=== PATIENT | male | born 1995 | race Caucasian/White ===

== ENCOUNTER 2022-12-29 16:04 | Emergency (ER) | payer BC, SELFPAY ==
--- NOTE | 2022-12-29 16:10 | ED.GENADULT ---
HPI - General Adult General Chief complaint: Upper Respiratory Infection Stated complaint: Sore Throat,Congestion,Lt Ear Irritation Time Seen by Provider: 12/29/22 16:11 Source: patient Mode of arrival: ambulatory Limitations: no limitations History of Present Illness HPI narrative: 27-year-old male patient presents to the [facility] with complaints of cold symptoms for the past week. Patient states 1 of this symptoms have resolved including the runny nose but contents continues to have congestion slight sore throat and today the main thing that is bothering him is fullness and pain to the left ear. Denies fevers, body aches or chills. Denies any chest pain or shortness of breath. Denies any abdominal pain, nausea, vomiting or diarrhea. Patient states he has been taking [id number] cough drops and NyQuil for his symptoms. Related Data Allergies Allergy/AdvReac Type Severity Reaction Status Date / Time No Known Allergies Allergy Verified 12/29/22 16:06 Review of Systems Review of Systems: CONSTITUTIONAL: Denies fever, chills, or sweats. EYES: Denies visual changes, redness, or discharge. ENT: Positive rhinorrhea, congestion, sore throat, and left otalgia. CARDIOVASCULAR: Denies chest pain, palpitations, or edema. RESPIRATORY: Denies cough or dyspnea. GASTROINTESTINAL: Denies abdominal pain, nausea, vomiting, or diarrhea. GENITOURINARY: Denies dysuria or hematuria. SKIN: Denies rash or itching. MUSCULOSKELETAL: Denies back pain, joint pain, or myalgia. NEUROLOGIC: Denies headache, numbness, or weakness. PSYCHIATRIC: Denies anxiety or depression. [facility] Past Medical History Medical History (Updated 12/29/22 @ 16:27 by DORYS Morin) No significant past medical history Family History Family History Father Hypertension Social History Social History Social History: Smoking status: Never smoker Second hand tobacco smoke exposure: No Alcohol intake: current Alcohol use details: socially Substance use: never Substance use type: does not use Living arrangements: with family Occupation/Education: occupation Gender identity (if verbalized by the patient): Male Sexual Orientation (if Verbalized by the Patient): Straight or Heterosexual Comments At the time of my signature I agree with nursing past medical history, surgical, social, and family history. There is no relevant family history pertinent to the presenting complaint. Exam Narrative: GENERAL: Well-appearing, well-nourished, and in no acute distress. HEAD: Normocephalic, atraumatic. EYES: PERRLA and EOMI. ENT: Nares with erythema and edema noted bilaterally, patent, no rhinorrhea or epistaxis. Mucous membranes moist. posterior pharynx noted to have an ulcer on uvula with some erythema present. No tonsillar enlargement. The left TM has erythema noted. NECK: Supple. No lymphadenopathy CHEST: Clear to auscultation. No respiratory distress. HEART: Regular rate and rhythm. No murmur heard. Normal peripheral pulses. ABDOMEN: Soft, nontender, nondistended, normal active bowel sounds. EXTREMITIES: Normal range of motion. No edema. SKIN: Warm, dry, no rash. NEURO: No focal deficits. Alert and oriented x3. Course Course Level of Care: Express Care Visit Vital Signs Vital signs: Vital Signs Temperature 36.6 C 12/29/22 16:15 Pulse Rate 81 12/29/22 16:15 Respiratory Rate 20 12/29/22 16:15 Blood Pressure 126/78 12/29/22 16:15 Pulse Oximetry 100 12/29/22 16:15 Oxygen Delivery Room Air 12/29/22 16:15 Temperature 36.6 C 12/29/22 16:15 Pulse Rate 81 12/29/22 16:15 Respiratory Rate 20 12/29/22 16:15 Blood Pressure 126/78 12/29/22 16:15 Pulse Oximetry 100 12/29/22 16:15 Oxygen Delivery Room Air 12/29/22 16:15 Vital signs reviewed Medical Decision Making
[2022-12-29 16:15] VITALS: BP 126/78; PULSE 81; RESP 20; TEMP 36.6; O2SAT 100
== END 2022-12-29 16:29 | disposition home or self-care (01) ==
PROVIDERS: Emergency Provider Nurse Practitioner Family
DX: H66.92 Otitis media, unspecified, left ear (principal)
CPT/HCPCS: 87081; 87880; 99213; G0463